=== PATIENT | male | born 2000 | race African-American/Black ===

== ENCOUNTER 2020-02-03 16:46 | Emergency (ER) | payer SELFPAY ==
[~2020-02-03] VITALS: Ht 195.6 cm; Wt 68.0 kg
[2020-02-03] MEDS ORDERED: CEPHALEXIN500 MG PO (17:07)
[2020-02-03] MEDS ORDERED: HYDROCO/APAP1 TA9 PO (17:26)
[2020-02-03 17:46] VITALS: BP 109/70
== END 2020-02-03 17:50 | disposition home or self-care (01) | DRG 950 ==
LOC: ED 16:46
DX: S61.206D Unspecified open wound of right little finger without damage to nail, subsequent encounter (principal); L08.9 Local infection of the skin and subcutaneous tissue, unspecified; X58.XXXD Exposure to other specified factors, subsequent encounter

== ENCOUNTER 2022-05-07 10:05 | Emergency (ER) | payer OTHER ==
[~2022-05-07] VITALS: Ht 195.6 cm; Wt 79.4 kg
[2022-05-07] VITALS (8 sets, daily range): BP systolic 115–137; BP diastolic 78–100
[~2022-05-07 10:05] MED LIST: CEPHALEXIN500 MG PO; HYDROCO/APAP1 TA9 PO
[2022-05-07 11:03] LABS: BASO% 0.4 % (0-3); EOS% 4.7 % (0-8); HEMATOCRIT 48.1 % (39.0-50.0); HEMOGLOBIN 15.7 g/dl (14.0-18.0); IMMATURE GRANULOCYTES 0.2 % (0.0-5.0); LYMPH% 32.6 % (15-41); MEAN CELL VOLUME 92.7 fL CALC (80.0-100.0); MEAN CORPUSCULAR HGB 30.3 pG CALC (26.0-32.0); MEAN CORPUSCULAR HGB CONC 32.6 g/dL CAL (32.0-36.0); MONO% 11.8 % (2-13); NEUT# 2.69 thou/uL (1.82-7.42); NEUT% 50.3 % (42-76); RED BLOOD COUNT 5.19 mill/uL (4.70-6.10); RED CELL DISTRI WIDTH 12.3 % (11.5-15.5)
[2022-05-07 11:16] LABS: ALBUMIN 4.7 g/dL (3.2-5.0); ALKALINE PHOSPHATASE 66 u/l (38-126); ANION GAP 11 (6-22 (CALC)); BILIRUBIN, TOTAL 0.6 mg/dL (0.2-1.3); BUN 13 mg/dL (9-20); BUN/CREATININE RATIO 15 (12-20 (CALC)); CARBON DIOXIDE 30 mmol/l (22-30); CHLORIDE 102 mmol/l (95-108); CREATININE 0.9 mg/dL (0.7-1.3); GFR FOR AFR.AMER. > 60 ML/MIN (>=60 (CALC)); GFR OTHER RACES > 60 ML/MIN (>=60 (CALC)); LIPASE 23 u/l (23-300); POTASSIUM 4.3 mmol/l (3.5-5.1); SGOT/AST 39 u/l (17-59); SODIUM 139 mmol/l (137-146); TOTAL PROTEIN 8.4 g/dL (6.3-8.2)
== END 2022-05-07 12:07 | disposition home or self-care (01) | DRG 313 ==
LOC: ED 10:05
PROVIDERS: Emergency Medicine
DX: R07.89 Other chest pain (principal)